=== PATIENT | male | born 1985 | race Caucasian/White ===

== ENCOUNTER 2019-07-10 06:27 | Emergency (ER) | payer SELFPAY ==
[~2019-07-10] VITALS: Ht 160 cm; Wt 66.7 kg
== END 2019-07-10 07:49 | disposition home or self-care (01) ==
LOC: ED 06:27
PROC: 0SSCXZZ Reposition Right Knee Joint, External Approach (ICD-10-PCS; principal; 2019-07-10)
DX: S83.014A Lateral dislocation of right patella, initial encounter (principal); Z87.891 Personal history of nicotine dependence; W01.0XXA Fall on same level from slipping, tripping and stumbling without subsequent striking against object, initial encounter
CPT/HCPCS: 27560; 73560; 99283-25

== ENCOUNTER 2019-12-25 15:34 | Emergency (ER) | payer OTHER ==
[~2019-12-25] VITALS: Ht 160 cm; Wt 66.7 kg
[2019-12-25] MEDS ORDERED: CLINDAMYCIN HC150 MG PO (15:54)
[2019-12-25] MEDS ORDERED: IBUPROFEN800 MG PO (15:55)
== END 2019-12-25 19:48 | disposition home or self-care (01) ==
LOC: ED 15:34
DX: K04.7 Periapical abscess without sinus (principal); Z87.891 Personal history of nicotine dependence; Z79.899 Other long term (current) drug therapy
CPT/HCPCS: 70491; 80053; 85025; 96374; 96375; 99283-25; J0295; J1100; J2270; Q9967